=== PATIENT | male | born 1955 | race Caucasian/White ===

== ENCOUNTER 2018-02-16 11:03 | Emergency (ER) | payer OTHER ==
[~2018-02-16 11:03] MED LIST: BACDS PO; CYAN1000 IM; CYAN25004; DIPH0.5D12 IM; DOC100 PO; GABA-488 PO; GABA-547 PO; GABA-549 PO; IBU600 PO; INDO50CA92 PO; MULT-27 PO; MUPI15CR10 TP; NO RTN MEDS; PER PO; ZOST19404 SQ
--- NOTE | 2018-02-16 11:19 | ER Report ---
History and Physical Time Seen By MD: 11:18 Hx. of Stated Complaint: pt reports dizziness starting last night and chest discomfort a few minutes ago R side mid chest HPI/ROS CHIEF COMPLAINT: Chest pain HISTORY OF PRESENT ILLNESS: This is a 62-year-old male who presents to the emergency department with right-sided chest pain. Patient states that last night he had had a few beers bent over when he stood up he felt "dizzy" and slowly fell to the ground denies hitting his head denies LOC and that quickly resolved. 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 Denies shortness of breath, diaphoresis nausea or vomiting. Patient denies aches , chills, fevers or headaches. He decided to come in for further evaluation. He also states that on his way to [place] about 10 years ago he did have some pretty severe chest pain stopped off at [facility] and had a thorough evaluation including a cardiac catheter which showed just a small amount of plaque buildup , otherwise the workup was negative. REVIEW OF SYSTEMS: Constitutional: No fever, no chills. Eyes: No discharge. ENT: No sore throat. Cardiovascular: As above. Respiratory: No cough, no shortness of breath. Gastrointestinal: No abdominal pain, no vomiting. Genitourinary: No hematuria. Musculoskeletal: No back pain. Skin: No rashes. Neurological: No headache. Allergies: Coded Allergies: No Known Drug Allergies (Verified , 03/15/16) Home Meds Active Scripts Gabapentin (NEURONTIN) 100 Mg Capsule, 1 TAB PO BID, #180 CAPSULE 4 Refills Prov:MARQUISE VALENZUELA APRN CALL CENTER SPECIALIST-C 10/30/16 Reported Medications Mu-Vits-Min Th/Lycopene/Lutein (CENTRUM SILVER TABLET) 1 Each Tablet, 1 EACH PO 03/15/16 Cyanocobalamin (Vitamin B-12) (Vitamin B12) 2,500 Mcg Tablet 10/10/15 Past Medical/Surgical History Patient has a past medical and surgical history of chest pain roughly 10-12 years ago, workup was negative, arthritic type pain, uses alcohol 4-5 times a week about 4 drinks each time, 3 knee scopes and 2 short shoulder scopes, Hx Smoking: No Smoking Status: Never Smoker Hx Alcohol Use: Yes (4-5/WEEK) Constitutional Vital Sign - Last 24 Hours 02/16/18 02/16/18 02/16/18 02/16/18 11:07 11:07 11:18 11:22 Temp 98.2 Pulse 90 86 Resp 16 10 B/P (MAP) 146/107 146/107 (120) 134/91 (105) Pulse Ox 89 92 O2 Delivery Room Air 02/16/18 02/16/18 02/16/18 02/16/18 11:30 11:33 11:48 12:00 Pulse 91 90 Resp 11 18 B/P (MAP) 145/104 (118) 131/116 (121) Pulse Ox 91 90 02/16/18 02/16/18 02/16/18 02/16/18 12:03 12:18 12:30 12:33 Pulse 88 91 86 Resp 16 8 28 B/P (MAP) 133/85 (101) Pulse Ox 91 90 89 02/16/18 02/16/18 02/16/18 02/16/18 12:48 13:00 13:05 13:20 Pulse 89 92 89 Resp 7 B/P (MAP) 138/106 (117) Pulse Ox 90 02/16/18 02/16/18 02/16/18 02/16/18 13:30 13:35 13:50 13:55 Pulse 91 91 93 Resp 23 20 11 B/P (MAP) 150/100 (117) Pulse Ox 89 90 90 02/16/18 02/16/18 02/16/18 02/16/18 14:00 14:10 14:30 14:40 Pulse 89 94 Resp 16 17 B/P (MAP) 160/111 (127) 165/96 (119) Pulse Ox 90 91 02/16/18 02/16/18 02/16/18 02/16/18 14:55 15:00 15:25 15:30 Pulse 93 88 Resp 12 9 B/P (MAP) 153/98 (116) 151/90 (110) Pulse Ox 92 91 02/16/18 15:46 Pulse 94 Resp 19 Pulse Ox 90 Physical Exam General Appearance: The patient is alert, has no immediate need for airway protection and no signs of toxicity. Eyes: Pupils equal and round no pallor or injection. ENT, Mouth: Mucous membranes are moist. Respiratory: There are no retractions, lungs are clear to auscultation. Cardiovascular: Regular rate and rhythm, no murmurs, clicks or rubs. Gastrointestinal: Abdomen is soft and non tender, no masses, bowel sounds normal. Neurological: Alert and oriented 4. Moving all extremities. Following all commands. No focal neural deficits. Skin: Warm and dry, no rashes. Musculoskeletal: Neck is supple non tender. Extremities are nontender, nonswollen and have full range of motion. [ ] DIFFERENTIAL DIAGNOSIS: After history and physical exam differential diagnosis was considered for chest pain including but not limited to myocardial ischemia, pericarditis pulmonary embolus, chest wall pain, pleural inflammation and pulmonary infectious causes. Medical Decision Making Data Points Result Diagram: 02/16/18 1115 02/16/18 1115 Laboratory Hematology Test 02/16/18 11:15 02/16/18 14:30 Red Blood Count 5.47 M/uL (4.00-5.60) Mean Corpuscular Volume 86.9 fL (80.0-96.0) Mean Corpuscular Hemoglobin 29.7 pg (26.0-33.0) Mean Corpuscular Hemoglobin Concent 34.2 g/dL (32.0-36.0) Red Cell Distribution Width 15.1 % (11.5-14.5) Mean Platelet Volume 7.4 fL (7.2-11.1) Neutrophils (%) (Auto) 62.1 % (39.4-72.5) Lymphocytes (%) (Auto) 28.3 % (17.6-49.6) Monocytes (%) (Auto) 8.4 % (4.1-12.4) Eosinophils (%) (Auto) 0.8 % (0.4-6.7) Basophils (%) (Auto) 0.4 % (0.3-1.4) Nucleated RBC Relative Count (auto) 0.0 /100WBC Neutrophils # (Auto) 5.8 K/uL (2.0-7.4) Lymphocytes # (Auto) 2.7 K/uL (1.3-3.6) Monocytes # (Auto) 0.8 K/uL (0.3-1.0) Eosinophils # (Auto) 0.1 K/uL (0.0-0.5) Basophils # (Auto) 0.0 K/uL (0.0-0.1) Nucleated RBC Absolute Count (auto) 0.00 K/uL Sodium Level 140 mmol/L (137-145) Potassium Level 3.8 mmol/L (3.5-5.0) Chloride Level 105 mmol/L (98-107) Carbon Dioxide Level 22 mmol/L (22-30) Blood Urea Nitrogen 9 mg/dl (9-21) Creatinine 0.90 mg/dl (0.66-1.25) Glomerular Filtration Rate Calc > 60.0 Random Glucose 126 mg/dl (75-110) Calcium Level 9.2 mg/dl (8.4-10.2) Total Bilirubin 0.5 mg/dl (0.2-1.3) Aspartate Amino Transf (AST/SGOT) 31 U/L (0-35) Alanine Aminotransferase (ALT/SGPT) 36 U/L (0-56) Alkaline Phosphatase 75 U/L (0-126) Total Protein 7.9 gm/dl (6.3-8.2) Albumin 4.1 g/dl (3.5-5.0) Troponin I < 0.012 ng/ml Chemistry Test 02/16/18 11:15 02/16/18 14:30 White Blood Count 9.4 k/uL (4.5-11.0) Red Blood Count 5.47 M/uL (4.00-5.60) Hemoglobin 16.3 g/dL (14.0-18.0) Hematocrit 47.6 % (42.0-52.0) Mean Corpuscular Volume 86.9 fL (80.0-96.0) Mean Corpuscular Hemoglobin 29.7 pg (26.0-33.0) Mean Corpuscular Hemoglobin Concent 34.2 g/dL (32.0-36.0) Red Cell Distribution Width 15.1 % (11.5-14.5) Platelet Count 286 K/uL (150-450) Mean Platelet Volume 7.4 fL (7.2-11.1) Neutrophils (%) (Auto) 62.1 % (39.4-72.5) Lymphocytes (%) (Auto) 28.3 % (17.6-49.6) Monocytes (%) (Auto) 8.4 % (4.1-12.4) Eosinophils (%) (Auto) 0.8 % (0.4-6.7) Basophils (%) (Auto) 0.4 % (0.3-1.4) Nucleated RBC Relative Count (auto) 0.0 /100WBC Neutrophils # (Auto) 5.8 K/uL (2.0-7.4) Lymphocytes # (Auto) 2.7 K/uL (1.3-3.6) Monocytes # (Auto) 0.8 K/uL (0.3-1.0) Eosinophils # (Auto) 0.1 K/uL (0.0-0.5) Basophils # (Auto) 0.0 K/uL (0.0-0.1) Nucleated RBC Absolute Count (auto) 0.00 K/uL Glomerular Filtration Rate Calc > 60.0 Calcium Level 9.2 mg/dl (8.4-10.2) Total Bilirubin 0.5 mg/dl (0.2-1.3) Aspartate Amino Transf (AST/SGOT) 31 U/L (0-35) Alanine Aminotransferase (ALT/SGPT) 36 U/L (0-56) Alkaline Phosphatase 75 U/L (0-126) Total Protein 7.9 gm/dl (6.3-8.2) Albumin 4.1 g/dl (3.5-5.0) Troponin I < 0.012 ng/ml EKG/Imaging EKG Interpretation 12 lead EKG: Time of EKG 1105. Rhythm: Normal sinus rhythm, ventricular rate of 95 bpm. [place]: normal QRS: normal ST segments: No ST depression or elevation identified. No previous EKG to compare to. 12 lead EKG: Repeat EKG time 1411. Rhythm: Normal sinus rhythm, ventricular rate 90 bpm. [place]: normal QRS: normal ST segments: No ST depression or elevation identified. Imaging Location: [facility] - [place] Patient: Cody Longoria : 1955 Visit/Account:[id number] Date of Sev: 02/16/2018 2 VIEWS CHEST INDICATION: Chest pain and dizziness. COMPARISON: None available FINDINGS: Cardiomediastinal silhouette and pulmonary vessels within normal limits. There is no focal infiltrate or lobar consolidation. There is no pneumothorax or pleural effusion. No nodule. Upper abdomen is unremarkable. No acute bony abnormality. IMPRESSION: 1. No acute cardiopulmonary process. Report Dictated By: Forrest Harris at 02/16/2018 12:27 PM Report E-Signed By: Forrest Harris at 02/16/2018 12:28 PM WSN:[id number] ED Course/Re-evaluation Clinical Indication for ER IV: IV Access ED Course The patient was admitted to room. A history and physical were obtained. Differential diagnoses were considered. An IV was started. A CBC, CMP, troponin were obtained. A two-view chest x-ray was negative for any cardiopulmonary process. Lab studies unremarkable. Negative troponin. EKG showing normal sinus rhythm with no ST depression or elevation. Repeat chip on it was negative. Repeat EKG showing normal sinus rhythm no changes no ST depression or elevation. I did review these results with the patient and told him that he needs to follow-up with his primary care provider for a possible stress test. Patient expressed understanding and was discharged home. Patient had no other questions or concerns at this time. Decision to Disposition Date: Feb 16, 2018 Decision to Disposition Time: 15:51 Depart Departure Latest Vital Signs Vital Signs Date Time Temp Pulse Resp B/P (MAP) Pulse Ox O2 Delivery O2 Flow Rate FiO2 02/16/18 15:46 94 19 90 02/16/18 15:30 151/90 (110) 02/16/18 11:07 98.2 Room Air Impression: Primary Impression: Chest pain Condition: Improved Disposition: HOME OR SELF-CARE Referrals: ELAYNE LANDAVERDE DNP, CALL CENTER SPECIALIST-BC (PCP) Patient Instructions: Chest Pain (ED) Additional Instructions: Drink plenty of fluids. Get plenty of rest. Be sure to follow up with your primary care provider within 7 days to discuss possible stress test. Continue current medications. May return to the ED for any other concerns or worsening symptoms. Problem Qualifiers Primary Impression: Chest pain Chest pain type: unspecified Qualified Codes: R07.9 - Chest pain, unspecified CHANDLER CARBAJAL CALL CENTER SPECIALIST-BC Feb 16, 2018 11:19
[2018-02-16] MEDS ORDERED: ASPIRIN 81 MG CHEW PO ONE (11:35)
[2018-02-16 11:42] LABS: PLATELET COUNT, AUTOMATED 286 K/uL (150-450)
--- NOTE | 2018-02-16 12:32 | RADIOLOGY IMAGING REPORT ---
FACILITY: [facility] PATIENT NAME: Cody Longoria : 1955 MR: [id number] V: [id number] EXAM DATE: ORDERING PHYSICIAN: CHANDLER CARBAJAL TECHNOLOGIST: Location: [facility] - [place] Patient: Cody Longoria : 1955 Visit/Account:[id number] Date of Sevice: 02/16/2018 2 VIEWS CHEST INDICATION: Chest pain and dizziness. COMPARISON: None available FINDINGS: Cardiomediastinal silhouette and pulmonary vessels within normal limits. There is no focal infiltrate or lobar consolidation. There is no pneumothorax or pleural effusion. No nodule. Upper abdomen is unremarkable. No acute bony abnormality. IMPRESSION: 1. No acute cardiopulmonary process. Report Dictated By: Forrest Harris at 02/16/2018 12:27 PM Report E-Signed By: Forrest Harris at 02/16/2018 12:28 PM WSN:[id number]
--- NOTE | 2018-02-16 12:58 | EKG ---
FACILITY: [facility] - [place] PATIENT NAME: PAUL DURAN : [id number] MR: [id number] V: [id number] EXAM DATE: ORDERING PHYSICIAN: CHANDLER CARBAJAL TECHNOLOGIST: AURORA Dominguez Reason : CHEST PAIN Blood Pressure : / mmHG Vent. Rate : 095 BPM Atrial Rate : 095 BPM P-R Int : 158 ms QRS Dur : 084 ms QT Int : 358 ms P-R-T Axes : 027 020 045 degrees QTc Int : 449 ms Normal sinus rhythm Normal ECG No previous ECGs available Confirmed by AMANDO PRITCHARD ([id number]) on 02/16/2018 1:03:30 PM Referred By: BUCK Confirmed By:AMANDO PRITCHARD
--- NOTE | 2018-02-16 14:22 | EKG ---
FACILITY: [facility] [place] PATIENT NAME: PAUL DURAN : [id number] MR: [id number] V: [id number] EXAM DATE: ORDERING PHYSICIAN: CHANDLER CARBAJAL TECHNOLOGIST: AURORA Dominguez Reason : REPEAT Blood Pressure : / mmHG Vent. Rate : 090 BPM Atrial Rate : 090 BPM P-R Int : 172 ms QRS Dur : 084 ms QT Int : 356 ms P-R-T Axes : 032 007 048 degrees QTc Int : 435 ms Normal sinus rhythm Normal ECG When compared with ECG of 16-FEB-2018 11:05, No significant change was found Confirmed by AMANDO PRITCHARD ([id number]) on 02/16/2018 10:14:35 PM Referred By: Confirmed By:AMANDO PRITCHARD
[2018-02-16 15:30] VITALS: BP 151/90
== END 2018-02-16 16:02 | disposition home or self-care (01) ==
LOC: ER 11:15
DX: R07.89 Other chest pain (principal)
CPT/HCPCS: 36415; 71046; 82040; 82247; 82310; 82374; 82435; 82565; 82947; 84075; 84132; 84155; 84295; 84450; 84460; 84484; 84520; 85025; 93005; 99284

== ENCOUNTER → 2018-05-04 | Outpatient (CLI) | payer OTHER ==
--- NOTE | 2018-05-04 18:50 | RADIOLOGY IMAGING REPORT ---
FACILITY: [facility] PATIENT NAME: Cody Longoria : 1955 MR: [id number] V: [id number] EXAM DATE: ORDERING PHYSICIAN: MARQUISE VALENZUELA TECHNOLOGIST: Location: [facility] [place] Patient: Cody Longoria : 1955 Visit/Account:[id number] Date of Sevice: 05/04/2018 CHEST PA AND LAT INDICATION: chronic cough COMPARISON: 02/16/2018 FINDINGS: Heart size within normal limits. There is no focal infiltrate or lobar consolidation. There is no pneumothorax or pleural effusion. IMPRESSION: 1. No acute cardiopulmonary process. Report Dictated By: Chet Pickens at 05/04/2018 6:45 PM Report E-Signed By: Chet Pickens at 05/04/2018 6:46 PM WSN:[id number]
== END ==
LOC: RAD 16:50
PROVIDERS: ATTEND Nurse Practitioner Family
DX: R05 Cough (principal)
CPT/HCPCS: 71046

== ENCOUNTER 2019-01-20 14:04 | Emergency (ER) | payer OTHER ==
[~2019-01-20 14:04] MED LIST changes: +INDO-23 PO; -INDO50CA92 PO; +PRED-1 PO
--- NOTE | 2019-01-20 14:09 | ER Report ---
History and Physical Time Seen By MD: 14:08 HPI/ROS CHIEF COMPLAINT: Back pain HISTORY OF PRESENT ILLNESS: This is a 63-year-old male who presents to the emergency department for back pain. Patient was at work this morning laying on his back, then around 8:00 stood up and over to pick Some tools and suddenly felt some pain in his lumbar back primarily on the right side. No loss of bowel or bladder, no urinary retention, no fevers or chills. No chest pain or shortness of breath. No numbness or tingling. No previous back injuries. REVIEW OF SYSTEMS: Respiratory: No cough, no dyspnea. Cardiovascular: No chest pain, no palpitations. Gastrointestinal: No vomiting, no abdominal pain. Musculoskeletal: As above. Allergies: Coded Allergies: No Known Drug Allergies (Verified , 01/20/19) Home Meds Active Scripts Gabapentin (NEURONTIN) 100 Mg Capsule, 1 TAB PO BID, #180 CAPSULE 3 Refills Prov:MARQUSIE VALENZUELA APRN PROJECT HIRE-C 05/04/18 Reported Medications Mu-Vits-Min Th/Lycopene/Lutein (CENTRUM SILVER TABLET) 1 Each Tablet, 1 EACH PO 03/15/16 Cyanocobalamin (Vitamin B-12) (Vitamin B12) 2,500 Mcg Tablet 10/10/15 Discontinued Scripts Prednisone 10 Mg Tab (PREDNISONE 10 MG TAB) 10 Mg Tablet, 2 TAB PO BID for 5 Days, #13 TAB 0 Refills Take 2 tabs twice daily x2 days. Then 1 tab twice daily x2 days. Then 1 tab daily x1 day. Prov:ELAYNE LANDAVERDE DNP, PROJECT HIRE-BC 06/14/18 Past Medical/Surgical History Patient has a past medical and surgical history of chest pain roughly 10-12 years ago, workup was negative, arthritic type pain, uses alcohol 4-5 times a week about 4 drinks each time, 3 knee scopes and 2 short shoulder scopes, Reviewed Nurses Notes: Yes Hx Smoking: No Smoking Status: Never Smoker Hx Alcohol Use: Yes (4-5/WEEK) Constitutional Vital Sign - Last 24 Hours 01/20/19 01/20/19 01/20/19 01/20/19 14:04 14:08 14:11 14:30 Temp 98.1 Pulse ??? 97 Resp 20 B/P (MAP) 140/89 140/89 (106) 113/86 (95) Pulse Ox 88 O2 Delivery Room Air 01/20/19 01/20/19 01/20/19 01/20/19 14:34 15:00 15:04 15:30 Pulse 84 77 B/P (MAP) 140/88 (105) 124/88 (100) Pulse Ox 92 91 01/20/19 01/20/19 15:34 15:39 Pulse 86 86 Pulse Ox 90 90 Physical Exam General Appearance: The patient is alert, has no immediate need for airway protection and no signs of toxicity. Eyes: Pupils equal and round no pallor or injection. ENT, Mouth: Mucous membranes are moist. Respiratory: There are no retractions, lungs are clear to auscultation. Cardiovascular: Regular rate and rhythm. Gastrointestinal: Abdomen is soft and non tender, no masses, bowel sounds ya l. Neurological: Alert and oriented 4. Moving all extremities. Following all commands. No focal neuro deficits. Skin: Warm and dry, no rashes. Musculoskeletal: Neck is supple non tender. Very mild tenderness to the right lumbar region, no bruising, crepitus there is a small amount of dimpling as compared to the left side otherwise unremarkable. Extremities are nontender, nonswollen and have full range of motion. DIFFERENTIAL DIAGNOSIS: After history and physical exam differential diagnosis was considered for back pain including but not limited to muscular pain, herniated disc, spine fracture, intra-abdominal causes and urinary tract infection. Medical Decision Making ED Course/Re-evaluation ED Course The patient was admitted to room. A history and physical were obtained. Differential diagnoses were considered. An x-ray of the lumbar spine was negative for any acute osseous abnormalities. I did review these results with the patient. It was recommended the patient follows up with physical therapy for further evaluation. Patient expressed understanding, was in agreement with his primary care, instructed to take ibuprofen or Tylenol as needed for pain. Decision to Disposition Date: Jan 20, 2019 Decision to Disposition Time: 15:56 Depart Departure Latest Vital Signs Vital Signs Date Time Temp Pulse Resp B/P (MAP) Pulse Ox O2 Delivery O2 Flow Rate FiO2 01/20/19 15:39 86 90 01/20/19 15:30 124/88 (100) 01/20/19 14:08 98.1 20 Room Air Impression: Primary Impression: Lumbar strain Condition: Improved Disposition: HOME OR SELF-CARE Referrals: MARQUISE VALENZUELA APRN PROJECT HIRE-C (PCP) ANDRES EARLY MD Patient Instructions: Acute Low Back Pain (ED) Additional Instructions: There were no acute findings noted on the x-ray however there was a very mild loss of height between the vertebrae not sure if this is acute orifices chronic. I would recommend following up with Dr. Early, the back specialist at [facility], if the pain is persistent. Take ibuprofen and Tylenol as needed for aches and pains. No work tomorrow January 21, I would like for you to rest her back, it is okay to return to work Thursday. Drink plenty of water. Get plenty of rest. Return to the emergency department for any other concerns or worsening symptoms. Problem Qualifiers Primary Impression: Lumbar strain Encounter type: initial encounter Qualified Codes: S39.012A - Strain of muscle, fascia and tendon of lower back, initial encounter CHANDLER CARBAJAL PROJECT HIRE-BC Jan 20, 2019 14:09
[2019-01-20 15:30] VITALS: BP 124/88
--- NOTE | 2019-01-20 15:39 | RADIOLOGY IMAGING REPORT ---
FACILITY: [facility] [place] PATIENT NAME: Cody Longoria : 1955 MR: [id number] V: [id number] EXAM DATE: ORDERING PHYSICIAN: CHANDLER CARBAJAL TECHNOLOGIST: Location: [facility] [place] Patient: Cody Longoria : 1955 Visit/Account:[id number] Date of Sevice: 01/20/2019 Exam type: L-SPINE >4 VIEWS History: pain in lower right back Comparison: CT on pelvis May 12, 2017. Findings: There are five nonrib-bearing lumbar-type vertebral bodies present. There is very mild loss of heigh t along the superior endplate of L2, L1, T12 and T11. This could be projectional in nature. There a re mild generative facet joint changes at L5-S1 bilaterally IMPRESSION: 1. There mild loss of height along the superior endplates from T11 to L2. This may simply be projec tional in nature if patient has continued symptoms MR is recommended Report Dictated By: Estrella Lima MD at 01/20/2019 3:32 PM Report E-Signed By: Estrella Lima MD at 01/20/2019 3:35 PM WSN:[id number]
== END 2019-01-20 16:07 | disposition home or self-care (01) ==
LOC: ER 14:15
DX: S39.012A Strain of muscle, fascia and tendon of lower back, initial encounter (principal)
CPT/HCPCS: 72120; 99283